=== PATIENT | female | born 1950 | race Caucasian/White ===

== ENCOUNTER 2021-05-16 11:27 | Emergency (ER) | payer MEDICARE, OTHER, SELFPAY ==
[2021-05-16 12:49] VITALS: BP 152/61; PULSE 91; RESP 18; TEMP 36.6; O2SAT 93; BMI 30.5
[2021-05-16 14:47] VITALS: BP 170/74; PULSE 92; RESP 18; O2SAT 95
[2021-05-16 14:59] LABS: MANUAL DIFF FLAG NO
[2021-05-16 15:01] LABS: Basophils Percent Auto 0.4 % (0-2); Eosinophils Absolute Auto 0.3 X10*3/uL (0.0-0.4); Eosinophils Percent Auto 4.1 % (0-4); Hematocrit 36.5 % (37.0-47.0); Hemoglobin 12.7 g/dl (12.0-16.0); Imm Gran Abs Auto 0.04 X10*3/uL (0.00-0.03); Imm Gran Pct Auto 0.5 % (0.0-0.4); Lymphocytes Percent Auto 25.2 % (20-40); Mean Corpuscular HGB Conc 34.8 g/dl (31.0-35.0); Mean Corpuscular Hemoglobin 30.3 pg (27.0-33.0); Mean Corpuscular Volume 87.1 fL (80.0-98.0); Mean Platelet Volume 9.3 fL (9.4-12.3); Monocytes Absolute Auto 0.5 X10*3/uL (0.1-1.2); Monocytes Percent Auto 6.9 % (2-11); Neutrophils Absolute Auto 4.9 x10*3/uL (2.0-8.3); Neutrophils Percent Auto 62.9 % (45-73); Platelet Count 299 X10*3/uL (160-400); Red Blood Count 4.19 X10*6/uL (4.20-5.50); Red Cell Distribution Width 13.3 % (11.0-16.0); White Blood Count 7.8 X10*3/uL (4.8-10.8)
[2021-05-16 15:19] LABS: Alanine Aminotransferase 21 U/L (0-31); Albumin Level 4.2 g/dL (3.5-5.0); Alkaline Phosphatase 92 U/L (39-117); Anion Gap 12 (12-20); Aspartate Amino Transferase 14 U/L (5-31); Bilirubin Direct 0.4 mg/dL (0.0-0.5); Bilirubin Total 1.2 mg/dL (0.0-1.0); Blood Urea Nitrogen 9 mg/dL (9-16); Calcium 9.3 mg/dL (8.4-10.2); Carbon Dioxide 27 mmol/L (22-29); Chloride 100 mmol/L (96-108); Creatinine Clr Calc Pharmacy 70.7; Estimated Glomerular Filt Rate > 60; Glucose Random 159 mg/dL (60-115); Lipase 14 U/L (8-78); Potassium 3.6 mmol/L (3.3-5.1); Sodium 135 mmol/L (135-145); Total Protein 6.8 g/dL (6.5-8.0)
[2021-05-16 16:30] VITALS: BP 187/76; PULSE 91; RESP 18; TEMP 36.8; O2SAT 97
[2021-05-16 17:42] LABS: Appearance Urine CLEAR; Color Urine YELLOW; Glucose Urine UA NEG (NEG); Leukocyte Esterase Urine 1+ (NEG); Nitrite Urine NEG (NEG); PH 6.5 (5.0-8.0); UACC Culture Trigger YES; Urine Blood NEG (NEG); Urine Ketones NEG (NEG); Urine Protein NEG (NEG-TRACE)
[2021-05-16 17:47] LABS: Bacteria Urine TRACE /LPF; RBC Urine 0-2 /HPF (0); Squamous Epithelial Cell Urine TRACE /LPF
== END 2021-05-16 19:15 | disposition left against medical advice (07) ==
PROVIDERS: Emergency Provider Emergency Medicine; PCP Internal Medicine
DX: R19.7 Diarrhea, unspecified (principal); L50.9 Urticaria, unspecified; R11.10 Vomiting, unspecified; Z79.899 Other long term (current) drug therapy
CPT/HCPCS: 36415; 80048; 80076; 81001; 83690; 85025; 87086; 99283

== ENCOUNTER 2025-06-11 10:24 | Outpatient (REF) | payer MEDICARE, OTHER, MEDICAID, SELFPAY | END 2025-06-11 10:25 | disposition home or self-care (01) | LOC: HO.HPHYSR 10:24 | PROVIDERS: PCP Internal Medicine; Visit Provider Physical Medicine & Rehabilitation | DX: M54.16 Radiculopathy, lumbar region (principal) | CPT/HCPCS: 64483; J2003; J3301; Q9967 ==

== ENCOUNTER 2025-06-11 10:24 | Outpatient (AMB) | payer MEDICARE, OTHER, MEDICAID, SELFPAY ==
--- NOTE | 2025-06-11 10:22 | A.PHYSOV_ITS ---
Vital Signs 06/11/25 10:32 Height 5 ft 3 in Weight 167 lb BMI 29.6 BP 175/88 H Pulse 84 Temp 97.9 F Intake Visit Reasons: Left Lumbar Transforaminal Epidural L4 Intake Note: Patient is a 74 year old female in office today for a Left L4 transforaminal epidural injection. Managed Care Manager Required: No Allergies cephalexin Allergy (Unknown, Verified 06/11/25 10:22) Unknown lactose Allergy (Unknown, Verified 06/11/25 10:22) Unknown semaglutide Allergy (Unknown, Verified 06/11/25 10:22) Unknown PFSH Medical History (Updated 06/11/25 @ 10:34 by Eros Victoria DO) Lumbar radiculitis Surgical History (Updated 06/11/25 @ 10:29 by Glenny Barfield MA) History of bladder surgery (Unknown) H/O: hysterectomy History of cholecystectomy History of back surgery Social History (Updated 06/11/25 @ 10:29 by Glenny Barfield MA) Household Members: None Alcohol intake: current Alcohol intake frequency: does not drink Patient Tobacco Use Status: Never used Tobacco Use of substances other than those prescribed or required for medical reasons: No Current occupational status: employed Current occupation: partime Physical Exam Vital Signs: Last Vital Signs Temp 97.9 F 06/11/25 10:32 Pulse 84 06/11/25 10:32 BP 175/88 H 06/11/25 10:32 BMI result Body Mass Index 29.6 Office Procedures Procedure Details: Procedure performed: Left L4 transforaminal epidural steroid injection Preop diagnosis: Lumbar radiculitis Postop diagnosis: The same Anesthesia: Local After informed consent was obtained, patient was placed on the procedure table in a prone position. Skin over lumbosacral area was prepped and draped in usual sterile manner. Left L4 pedicle was visualized utilizing fluoroscopy. 5 inch 22 gauge spinal needle was introduced percutaneously and advanced towards the pedicle at about 6 o'clock position. Once level of neural foramina was reached, needle placement was verified utilizing 3 cc of Omnipaque contrast solution. Excellent flow through the neural foramina and epidural spread was identified without evidence of vascular uptake. Total volume of 6 cc containing 2 cc of 1% lidocaine, 40 mg of triamcinolone and normal saline solution were injected after negative aspiration for blood and cerebrospinal fluid. Radiation exposure was documented in the chart. Lumbar transforaminal Epidural Steroid Inj- use with FL Gd: 24919 - Single Procedure code (CPT) selection complete Office Meds Kenalog 40 mg/mL suspension for injection Performing Provider: Eros Victoria DO Performing Location[facility] Administered by: Eros Victoria DO on 06/11/25 10:35 Dose Route Admin Location Dispensed Lot Number Expiration Date [facility] [employer] 40 mg epidural 1 mL [id number] [employer] Total Dispensed Waste 1 mL 0 % lidocaine (PF) 10 mg/mL (1 %) injection solution Performing Provider: Eros Victoria DO Performing Location[facility] Administered by: Eros Victoria DO on 06/11/25 10:35 Dose Route Admin Location Dispensed Lot Number Expiration Date [facility] [employer] 50 mg epidural 5 mL [id number] [employer] Total Dispensed Waste 5 mL 0 % Omnipaque 300 300 mg iodine/mL intravenous solution Performing Provider: Eors Victoria DO Performing [facility] Administered by: Eros Victoria DO on 06/11/25 10:35 Dose Route Admin Location Dispensed Lot Number Expiration Date [facility] [employer] 3 mL epidural 10 mL [id number] [employer] Total Dispensed Waste 10 mL 70 % Assessment & Plan Assessment & Plan (1) Lumbar radiculitis: Code(s): M54.16 - Radiculopathy, lumbar region Category: Medical Plan: Procedure Plan Procedure Orders: Orders FL Gd Lumbar Transforaminal In Today M54.16 - Radiculopathy, lumbar region AMB Lumbar transforaminal Epidural Steroid Injection Today M54.16 - Radiculopathy, lumbar region Coding Level of Care Code Procedure Only Diagnoses Lumbar radiculitis M54.16 CPT Codes Lumbar transforaminal Epidural Steroid I - CPT TRANSFORM: 90098 - Single ([id number])
[2025-06-11 10:32] VITALS: BP 175/88; PULSE 84; TEMP 36.6; BMI 29.6
== END 2025-06-11 10:59 | disposition home or self-care (01) ==
LOC: HO.HPHYS 10:24
PROVIDERS: PCP Internal Medicine; Visit Provider Physical Medicine & Rehabilitation
DX: M54.16 Radiculopathy, lumbar region (principal)
CPT/HCPCS: 64483